=== PATIENT | female | born 1980 | race Caucasian/White ===

== ENCOUNTER 2019-06-30 09:30 | Emergency (ER) | payer BC ==
--- NOTE | 2019-06-30 11:12 | ED ---
Lower Extremity - HPI Summary HPI Summary: 39 yo WF p/w right knee pain 3 days ago, fell down 7 steps after slip and fall withe direct blow to the knee, hurts to ambulate, denies numbness and tingling - History of Current Complaint Chief Complaint: UCLowerExtremity Stated Complaint: KNEE INJURY Time Seen by Provider: 06/30/19 10:22 Hx Obtained From: Patient Hx Last Menstrual Period: 06/16/19 Mechanism Of Injury: Blunt Trauma Onset of Pain: Days Onset/Duration: Still Present Pain Intensity: 6 Timing: Constant Location: Is Discrete @ - right lateral knee - Allergies/Home Medications Allergies/Adverse Reactions: Allergies Allergy/AdvReac Type Severity Reaction Status Date / Time No Known Allergies Allergy Verified 06/30/19 10:21 Home Medications: Home Medications Naproxen [Naproxen 500 mg tab] 500 mg PO BID 10 Days #20 tablet 06/30/19 [Rx] PMH/Surg Hx/FS Hx/Imm Hx Previously Healthy: Yes Endocrine/Hematology History: Reports: Hx Diabetes - type 2 Respiratory History: Reports: Hx Asthma - Surgical History Surgery Procedure, Year, and Place: tubal, tubes in ears,t&a,nose repaired,leep Infectious Disease History: No Infectious Disease History: Denies: Traveled Outside the [place] in Last 30 Days - Family History Known Family History: Positive: Non-Contributory - Social History Occupation: Works From/At Home Alcohol Use: Weekly Substance Use Type: Reports: None Smoking Status (MU): Former Smoker Review of Systems Constitutional: Negative Eyes: Negative ENT: Negative Cardiovascular: Negative Respiratory: Negative Gastrointestinal: Negative Genitourinary: Negative Positive: Decreased ROM, Other - right knee pain Skin: Negative Neurological/Mental Status: Negative All Other Systems Reviewed And Are Negative: Yes Physical Exam - Summary Physical Exam Summary: Vital Signs Reviewed: Yes Eye Exam: Normal Eyes: Positive: Conjunctiva Clear ENT: Positive: Normal ENT inspection Neck: Positive: Supple Respiratory Exam: Normal Respiratory: Positive: Lungs clear, Normal breath sounds. Negative: Crackles, Rhonchi, Stridor, Wheezing Cardiovascular Exam: Normal, RRR, S1, S2 Abdomen: NT/ND Musculoskeletal Exam: TTP right lateral knee and peripaterllar area, NO bony tenderness Neurological Exam: Normal Psychological Exam: Normal Skin Exam: Normal Vital Signs On Initial Exam: Initial Vitals Temp Pulse Resp BP Pulse Ox 36.8 C 83 15 129/82 100 06/30/19 10:18 06/30/19 10:18 06/30/19 10:18 06/30/19 10:18 06/30/19 10:18 Diagnostics - Vital Signs Vital Signs Temp Pulse Resp BP Pulse Ox 06/30/19 10:18 36.8 C 83 15 129/82 100 - Laboratory Lab Statement: Any lab studies that have been ordered have been reviewed, and results considered in the medical decision making process. Lower Extremity Course/Dx - Course Assessment/Plan: XR right knee neg for fx - Diagnoses Differential Diagnosis/HQI/PQRI: Positive: Sprain, Strain Provider Diagnoses: Sprain of right knee Discharge ED - Sign-Out/Discharge Documenting (check all that apply): Patient Departure All imaging exams completed and their final reports reviewed: Yes - Discharge Plan Condition: Stable Disposition: HOME Prescriptions: Naproxen [Naproxen 500 mg tab] 500 mg PO BID 10 Days #20 tablet Patient Education Materials: Knee Sprain (ED) Referrals: No Primary Care Phys,NOPCP [Primary Care Provider] - - Billing Disposition and Condition Condition: STABLE Disposition: Home
== END 2019-06-30 11:12 | disposition home or self-care (01) ==
LOC: UCEAST 09:30
DX: S83.91XA Sprain of unspecified site of right knee, initial encounter (principal); E11.9 Type 2 diabetes mellitus without complications; Z87.891 Personal history of nicotine dependence; W10.9XXA Fall (on) (from) unspecified stairs and steps, initial encounter; Y92.9 Unspecified place or not applicable
CPT/HCPCS: 99202; G0463